=== PATIENT | male | born 1960 | race Hispanic/Latino ===

== ENCOUNTER → 2017-03-30 | Day surgery (SDC) | payer BC ==
[~2017-03-30] MED LIST: FENTANYL CITRATE/PF 100MCG/2 ML INJ ONE; LANTUS 3ML100 UNITS/ SC; LISINOPRIL10 MG PO; METFORMIN HCL500 MG PO; MIDAZOLAM HCL 2 MG/2 ML VIAL ONE; PROPOFOL IV EMULSION 10 MG/ML 50 ML VIAL ONE
== END | disposition home or self-care (01) ==
LOC: OR 11:12
PROVIDERS: ATTEND Internal Medicine Gastroenterology
DX: Z12.11 Encounter for screening for malignant neoplasm of colon (principal); K52.9 Noninfective gastroenteritis and colitis, unspecified; K57.30 Diverticulosis of large intestine without perforation or abscess without bleeding; K64.1 Second degree hemorrhoids; D64.89 Other specified anemias; E11.9 Type 2 diabetes mellitus without complications; I10 Essential (primary) hypertension; I49.3 Ventricular premature depolarization; D69.6 Thrombocytopenia, unspecified; F17.210 Nicotine dependence, cigarettes, uncomplicated; Z01.810 Encounter for preprocedural cardiovascular examination; Z79.4 Long term (current) use of insulin
CPT/HCPCS: 36415; 45380; 82948; 93005; J2250; 45378